=== PATIENT | female | born 1990 | race African-American/Black ===

== ENCOUNTER 2016-10-30 14:16 | Emergency (ER) | payer SELFPAY ==
[~2016-10-30] VITALS: Ht 160 cm; Wt 99.3 kg
[2016-10-30 15:21] LABS: BILIRUBIN,URINE NEGATIVE (NEG); GLUCOSE,URINE NEGATIVE (NEG); NITRITE,URINE NEGATIVE (NEG); PH,URINE 5.5; PROTEIN,URINE 30 mg/dL (NEG-TRACE)
[2016-10-30 15:29] LABS: BACTERIA,URINE FEW /HPF (0-FEW); RBC,URINE TNTC /HPF (0-2); SQUAMOUS EPITHELIAL CELL,UR MANY /LPF
[2016-10-30 15:40] LABS: BASO # 0.1 x10^3/uL (0.0-0.2); BASO % 1 % (0-3); EOS % 1 % (0-3); HEMATOCRIT 28.5 % (36.0-47.0); HEMOGLOBIN 8.3 g/dL (12.0-15.5); LYMPH # 1.6 x10^3/uL (1.0-4.8); LYMPH % 32 % (24-48); MEAN CORPUSCULAR HEMOGLOBIN 19 pg (25-35); MEAN CORPUSCULAR HGB CONC 29 g/dL (31-37); MEAN CORPUSCULAR VOLUME 66 fL (79-100); MONO % 9 % (0-9); NEUT % 57 % (31-73); PLATELET COUNT 275 x10^3/uL (140-400); RED BLOOD COUNT 4.34 x10^6/uL (3.50-5.40); RED CELL DISTRIBUTION WIDTH 18.9 % (11.5-14.5)
[2016-10-30 16:08] LABS: PLT ESTIMATE ADEQUATE (ADEQUATE)
[2016-10-30 16:09] LABS: ANISOCYTOSIS SLIGHT; HYPOCHROMIA MARKED; MICROCYTOSIS MARKED; POLYCHROMASIA SLIGHT; SCHISTOCYTES OCC; TARGET CELLS FEW
[2016-10-30 16:12] LABS: CALCIUM 8.1 mg/dL (8.5-10.1); CREATININE 1.1 mg/dL (0.6-1.0); GFR 71.6; POTASSIUM 4.1 mmol/L (3.5-5.1)
[2016-10-30] MEDS ORDERED: IBUP200T77 PO (16:24)
--- NOTE | 2016-10-30 16:24 | PHYS DOC ---
Past Medical History Past Medical History: Anemia, Asthma Past Surgical History: No Surgical History Additional Information: 3-4 cigarettes daily Alcohol Use: None Drug Use: Marijuana Adult General Chief Complaint Chief Complaint: LOWER EXTREMITY SWELLING HPI HPI 18-year-old female presenting to the emergency department today with leg swelling bilaterally worse on the left. This is started approximately 2 weeks ago. She denies any recent injury or trauma to the leg. She denies any personal or family history of PE or DVT. She denies hemoptysis chest pain shortness of breath. The pain is worse with walking. It is moderate to mild. She has not taken anything for it. It is nonradiating and it is improved with rest and elevation. She denies having a fever or chills at home. Review of systems is negative for chest pain shortness of breath abdominal pain nausea vomiting. All other review of systems is negative unless otherwise noted in history of present illness. Review of Systems Review of Systems SEE ABOVE. Allergies Allergies Allergies Coded Allergies Type Severity Reaction Last Updated Verified shellfish derived Allergy Severe swelling 10/30/16 Yes Physical Exam Physical Exam Constitutional: Well developed, well nourished, no acute distress, non-toxic appearance. HENT: Normocephalic, atraumatic, bilateral external ears normal, oropharynx moist, no oral exudates, nose normal. [] Eyes: PERRLA, EOMI, conjunctiva normal, no discharge. Neck: Normal range of motion, no tenderness, supple, no stridor. [] Cardiovascular:Heart rate regular rhythm, no murmur Lungs & Thorax: Bilateral breath sounds clear to auscultation [] Abdomen: Bowel sounds normal, soft, no tenderness, no masses, no pulsatile masses. Skin: Warm, dry, no erythema, no rash. [] Back: No tenderness, no CVA tenderness. Extremities: Patient has 3+ edema on the left without erythema. Palpable pulse with normal neurovascular status in 2 second cap refill in the extremity. The right extremity has trace edema with normal neurovascular status. Neurologic: Alert and oriented X 3, normal motor function, normal sensory function, no focal deficits noted. Psychologic: Affect normal, judgement normal, mood normal. Current Patient Data Vital Signs Vital Signs Date Time Temp Pulse Resp B/P Pulse Ox O2 Delivery O2 Flow Rate FiO2 10/30/16 16:26 106 18 102/62 98 Room Air 10/30/16 14:34 98.8 98.8 Lab Values Laboratory Tests Test 10/30/16 14:45 10/30/16 15:30 Urine Collection Type Unknown Urine Color Dk yellow Urine Clarity Clear Urine pH 5.5 Urine Specific [place] 1.020 Urine Protein 30mg/dL (NEG-TRACE) Urine Glucose (UA) Negativemg/dL (NEG) Urine Ketones (Stick) Negativemg/dL (NEG) Urine Blood Large (NEG) Urine Nitrite Negative (NEG) Urine Bilirubin Negative (NEG) Urine Urobilinogen Dipstick 1.0mg/dL (0.2 mg/dL) Urine Leukocyte Esterase Large (NEG) Urine RBC Tntc/HPF (0-2) Urine WBC 11-20/HPF (0-4) Urine Squamous Epithelial Cells Many/LPF Urine Bacteria Few/HPF (0-FEW) Urine Mucus Marked/LPF White Blood Count 5.0x10^3/uL (4.0-11.0) Red Blood Count 4.34x10^6/uL (3.50-5.40) Hemoglobin 8.3g/dL (12.0-15.5) L Hematocrit 28.5% (36.0-47.0) L Mean Corpuscular Volume 66fL (79-100) L Mean Corpuscular Hemoglobin 19pg (25-35) L Mean Corpuscular Hemoglobin Concent 29g/dL (31-37) L Red Cell Distribution Width 18.9% (11.5-14.5) H Platelet Count 275x10^3/uL (140-400) Neutrophils (%) (Auto) 57% (31-73) Lymphocytes (%) (Auto) 32% (24-48) Monocytes (%) (Auto) 9% (0-9) Eosinophils (%) (Auto) 1% (0-3) Basophils (%) (Auto) 1% (0-3) Neutrophils # (Auto) 2.9x10^3uL (1.8-7.7) Lymphocytes # (Auto) 1.6x10^3/uL (1.0-4.8) Monocytes # (Auto) 0.4x10^3/uL (0.0-1.1) Eosinophils # (Auto) 0.0x10^3/uL (0.0-0.7) Basophils # (Auto) 0.1x10^3/uL (0.0-0.2) Platelet Estimate Adequate (ADEQUATE) Polychromasia Slight Hypochromasia Marked Anisocytosis Slight Microcytosis Marked Target Cells Few Schistocytes Occ Sodium Level 137mmol/L (136-145) Potassium Level 4.1mmol/L (3.5-5.1) Chloride Level 104mmol/L (98-107) Carbon Dioxide Level 25mmol/L (21-32) Anion Gap 8 (6-14) Blood Urea Nitrogen 16mg/dL (7-20) Creatinine 1.1mg/dL (0.6-1.0) H Estimated GFR (Cockcroft-Gault) 71.6 Glucose Level 104mg/dL (70-99) H Calcium Level 8.1mg/dL (8.5-10.1) L Laboratory Tests 10/30/16 15:30 Laboratory Tests 10/30/16 15:30 EKG EKG [] Radiology/Procedures Radiology/Procedures [] Course & Med Decision Making Course & Med Decision Making Pertinent Labs and Imaging studies reviewed. (See chart for details) [] 26-year-old female presenting to the emergency department with lateral leg swelling worse on the left. Triage vital signs afebrile. Otherwise mild tachycardia. Pertinent clinical examination showed swelling on the left without tenderness along the venous system. Ultrasound obtained blood work and urinalysis and obtained. CBC shows anemia which she reports is chronic. Urinalysis shows contaminated specimen likely secondary to the patient being on her period currently. Chemistry panel shows normal kidney function. Ultrasound unremarkable. I prescribed the patient a small amount of medication for pain and instructed her to follow up with her primary care doctor over the next 2-3 days for continued outpatient workup and care. Dragon Disclaimer Dragon Disclaimer This electronic medical record was generated, in whole or in part, using a voice recognition dictation system. Departure Departure Impression: Primary Impression: Pain and swelling of left lower leg Disposition: 01 HOME, SELF-CARE Condition: STABLE Referrals: NO PCP (PCP) HILARIO CAMARA MD Additional Instructions: Thank you for allowing us to participate in your care today. Followup with your primary care physician in 2-3 days to continue the process of investigating this. If you do not have a primary care provider you can ask for a list of our primary care providers. Return to the emergency department you have any new or concerning findings. This should be evaluated by the primary care physician and any necessary consulting services for continued management within a few days after discharge. Return to emergency room if you have any new or concerning symptoms including but not limited to fever, chills, nausea, vomiting, intractable pain, any new rashes, chest pain, shortness of air, uncontrolled bleeding, difficulty breathing, and/or vision loss. You may have been prescribed medication that can change in your level of thinking and ability to operate machinery. These medications include hydrocodone and Ativan. Also, Benadryl has been known to do this as well. Be sure to check with your pharmacist and ask if the medications you've prescribed can affect your level of consciousness. I recommend not operating heavy machinery or driving while on medication such as these. Scripts Ibuprofen 200 Mg [id number] Mg PO PRN Q8HRS PRN PAIN #20 TAB Prov:XIMENA BARNETT MD 10/30/16 XIMENA BARNETT MD Oct 30, 2016 16:24
[2016-10-30 16:26] VITALS: BP 102/62
--- NOTE | 2016-10-30 16:33 | RAD ---
Indication pain and swelling. Grayscale color Doppler and spectral imaging was performed. The examination was targeted to the veins of the left lower extremity. The common femoral, femoral and popliteal vessels demonstrate normal flow compressibility and augmentation. No thrombus is seen. Some soft tissue swelling in the left calf was noted during the exam. Mild adenopathy in the left groin was additionally noted. IMPRESSION: Negative left lower extremity venous analysis for DVT
== END 2016-10-30 16:42 | disposition home or self-care (01) ==
LOC: ER 15:43
DX: M79.662 Pain in left lower leg (principal); M79.89 Other specified soft tissue disorders; J45.909 Unspecified asthma, uncomplicated; F17.210 Nicotine dependence, cigarettes, uncomplicated; F12.10 Cannabis abuse, uncomplicated; Z91.013 Allergy to seafood
CPT/HCPCS: 36415; 80048; 81001; 81025; 84703; 85007; 85027; 87086; 93971; 99285-25